=== PATIENT | male | born 1980 | race Caucasian/White ===

== ENCOUNTER 2020-12-11 22:45 | Emergency (ER) | payer OTHER ==
[~2020-12-11] VITALS: Ht 182.9 cm; Wt 77.1 kg
[2020-12-12 00:16] VITALS: BP 124/74
[2020-12-12] MEDS ORDERED: ODEFSEY TABLET1 EACH PO (00:23)
[2020-12-12] MEDS ORDERED: LEVO-T50 MCG PO (00:24)
[2020-12-12] MEDS ORDERED: LIPITOR40 MG PO (00:24)
[2020-12-12] MEDS ORDERED: LISINOPRIL-HCT1 EAC1 PO (00:25)
== END 2020-12-12 02:30 | disposition left against medical advice (07) ==
LOC: M.ERS 22:45
DX: M25.511 Pain in right shoulder (principal); Z53.21 Procedure and treatment not carried out due to patient leaving prior to being seen by health care provider